=== PATIENT | male | born 1980 | race Caucasian/White ===

== ENCOUNTER 2018-02-06 19:57 | Emergency (ER) | payer OTHER ==
[~2018-02-06] VITALS: Ht 172.7 cm; Wt 102.6 kg
[2018-02-06] MEDS ORDERED: MOTRIN600 MG PO (22:46)
[2018-02-06] MEDS ORDERED: PREDNISONE10 M1 PO (22:46)
[2018-02-06] MEDS ORDERED: AMOXICILLIN875 MG PO (22:46)
[2018-02-06 22:53] VITALS: BP 135/81
== END 2018-02-06 22:54 | disposition home or self-care (01) ==
LOC: RME 19:57 → EME 19:57 → RME 22:54
DX: J02.9 Acute pharyngitis, unspecified (principal); H66.91 Otitis media, unspecified, right ear; F17.210 Nicotine dependence, cigarettes, uncomplicated; Z88.5 Allergy status to narcotic agent
CPT/HCPCS: 87651 90; 99281; 99284